=== PATIENT | male | born 1970 | race Caucasian/White ===

== ENCOUNTER 2017-07-29 10:16 | Outpatient (CLI) | payer OTHER | END 2017-07-29 10:29 | disposition home or self-care (01) | LOC: SONOGRAMA 10:16 | DX: E03.8 Other specified hypothyroidism (principal); I10 Essential (primary) hypertension; E55.9 Vitamin D deficiency, unspecified; F41.1 Generalized anxiety disorder; E78.00 Pure hypercholesterolemia, unspecified ==

== ENCOUNTER 2019-05-07 13:39 | Outpatient (CLI) | payer OTHER | END 2019-05-07 13:58 | disposition home or self-care (01) | LOC: SONOGRAMA 13:39 | DX: E03.8 Other specified hypothyroidism (principal) ==

== ENCOUNTER 2020-02-29 09:24 | Outpatient (CLI) | payer OTHER | END 2020-02-29 09:32 | disposition home or self-care (01) | LOC: SONOGRAMA 09:24 | PROVIDERS: ATTEND Internal Medicine Endocrinology, Diabetes & Metabolism | DX: E04.1 Nontoxic single thyroid nodule (principal) ==

== ENCOUNTER 2020-03-31 12:26 | Outpatient (CLI) | payer OTHER | END 2020-03-31 12:28 | disposition home or self-care (01) | LOC: SONOGRAMA 12:26 | PROVIDERS: ATTEND Pathology Anatomic Pathology & Clinical Pathology | DX: E04.2 Nontoxic multinodular goiter (principal) ==

== ENCOUNTER 2020-04-07 09:20 | Outpatient (CLI) | payer OTHER | END 2020-04-07 09:23 | disposition home or self-care (01) | LOC: RX STUDY 09:20 | PROVIDERS: ATTEND Internal Medicine Cardiovascular Disease | DX: Z00.00 Encounter for general adult medical examination without abnormal findings (principal) ==

== ENCOUNTER 2020-04-15 10:52 | Outpatient (CLI) | payer OTHER | END 2020-04-15 10:54 | disposition home or self-care (01) | LOC: NUCLEAR 10:52 | PROVIDERS: ATTEND Internal Medicine Cardiovascular Disease | DX: M85.89 Other specified disorders of bone density and structure, multiple sites (principal) ==

== ENCOUNTER 2021-05-23 07:34 | Outpatient (CLI) | payer OTHER | END 2021-05-23 07:48 | disposition home or self-care (01) | LOC: SONOGRAMA 07:34 | PROVIDERS: ATTEND Specialist | DX: E03.8 Other specified hypothyroidism (principal) ==

== ENCOUNTER 2021-11-14 09:03 | Outpatient (CLI) | payer OTHER | END 2021-11-14 09:15 | disposition home or self-care (01) | LOC: MRI 09:03 | PROVIDERS: ATTEND Physical Medicine & Rehabilitation | DX: M54.31 Sciatica, right side (principal); M54.51 Vertebrogenic low back pain; M51.9 Unspecified thoracic, thoracolumbar and lumbosacral intervertebral disc disorder | CPT/HCPCS: 72148 ==

== ENCOUNTER → 2022-09-08 07:44 | Outpatient (CLI) | payer OTHER | END | disposition home or self-care (01) | LOC: LAB 07:44 | PROVIDERS: ATTEND Specialist | DX: E03.9 Hypothyroidism, unspecified (principal); E55.9 Vitamin D deficiency, unspecified; B00.9 Herpesviral infection, unspecified; F41.1 Generalized anxiety disorder; Z12.11 Encounter for screening for malignant neoplasm of colon; N42.83 Cyst of prostate; R73.01 Impaired fasting glucose; D64.9 Anemia, unspecified; N39.0 Urinary tract infection, site not specified; E78.00 Pure hypercholesterolemia, unspecified; E78.1 Pure hyperglyceridemia; E04.1 Nontoxic single thyroid nodule; I10 Essential (primary) hypertension; E78.2 Mixed hyperlipidemia; D50.0 Iron deficiency anemia secondary to blood loss (chronic); I11.9 Hypertensive heart disease without heart failure ==

== ENCOUNTER 2022-09-28 08:18 | Outpatient (CLI) | payer OTHER | END 2022-09-28 08:24 | disposition home or self-care (01) | LOC: SONOGRAMA 08:18 | PROVIDERS: ATTEND Specialist | DX: E03.9 Hypothyroidism, unspecified (principal); M54.50 Low back pain, unspecified ==

== ENCOUNTER 2022-09-28 08:52 | Outpatient (CLI) | payer OTHER | END 2022-09-28 08:54 | disposition home or self-care (01) | LOC: LAB 08:52 | PROVIDERS: ATTEND Specialist | DX: Z12.11 Encounter for screening for malignant neoplasm of colon (principal) ==

== ENCOUNTER 2022-11-19 07:30 | Outpatient (CLI) | payer OTHER | END 2022-11-19 07:44 | disposition home or self-care (01) | LOC: MRI 07:30 | PROVIDERS: ATTEND Physical Medicine & Rehabilitation Pain Medicine | DX: M51.26 Other intervertebral disc displacement, lumbar region (principal) | CPT/HCPCS: 72148 ==

== ENCOUNTER 2024-08-28 07:12 | Outpatient (CLI) | payer OTHER ==
[2024-08-28 08:16] LABS: HEMATOCRIT 42.1 % (39.0-48.0); HEMOGLOBIN 14.4 g/dL (13-16.00); MEAN CELL VOLUME 82.5 fL (80.0-100.00); MEAN CORPUSCULAR HEMOGLOBIN 28.3 pg (27.00-32.0); MEAN CORPUSCULAR HGB CONC 34.3 g/dl (32.0-36.0); PLATELET COUNT 353 K/uL (150-450); RED BLOOD COUNT 5.11 M/uL (4.00-6.00); RED CELL DISTRIBUTION WIDTH 13.5 % (11.5-14.5)
[2024-08-28 08:32] LABS: URINE BACTERIA 6.1 uL (0.0-1933); URINE WBC 3.6 uL (0.0-23.2)
[2024-08-28 09:01] LABS: URINE BILIRRUBIN NEGATIVE (NEGATIVE); URINE BLOOD NEGATIVE; URINE GLUCOSE NEGATIVE (NEGATIVE); URINE KETONE NEGATIVE (NEGATIVE); URINE LEUKOCYTE NEGATIVE; URINE NITRATE NEGATIVE; URINE PROTEIN NEGATIVE (NEGATIVE); URINE UROBILINOGEN 0.2 E.U./dl
[2024-08-28 09:02] LABS: URINE EPITHELIAL CELLS 0.9 uL (0.0-38.8); URINE RBC 1.6 uL (0.0-20.8)
[2024-08-28 09:03] LABS: URINE APPEARANCE CLEAR; URINE COLOR YELLOW
[2024-08-28 09:15] LABS: ALBUMIN 3.8 gm/dL (3.4-5.0); BILIRUBIN TOTAL 0.47 mg/dL (0.3-1.2); CALCIUM 9.7 mg/dL (8.5-10.1); CHOL HDL RATIO 1.8 (0-5.0); CREATININE SERUM 1.04 mg/dL (0.70-1.30); GFR 74.7; GLOBULINA 3.4 G/DL (2.4-3.5); POTASSIUM 4.36 mEq/L (3.5-5.1); TOTAL PROTEIN 7.2 gm/dL (6.4-8.2)
[2024-08-28 13:58] LABS: FREE TRIODOTIRONINE 2.6 pg/ml (2.18-3.98); PROSTATIC SPECIFIC ANTIGEN 1.31 NG/ML (0.010-4.00); T4 FREE 0.96 NG/ML (0.76-1.46); TSH 1.07 uIU/mL (0.358-3.74)
== END 2024-08-28 07:24 | disposition home or self-care (01) ==
LOC: LAB 07:12
PROVIDERS: ATTEND Specialist
DX: N39.0 Urinary tract infection, site not specified (principal); E03.9 Hypothyroidism, unspecified; E55.9 Vitamin D deficiency, unspecified; B00.9 Herpesviral infection, unspecified; F41.1 Generalized anxiety disorder; Z12.11 Encounter for screening for malignant neoplasm of colon; N42.83 Cyst of prostate; R73.01 Impaired fasting glucose; D64.9 Anemia, unspecified; E78.00 Pure hypercholesterolemia, unspecified; E78.1 Pure hyperglyceridemia

== ENCOUNTER 2024-08-28 07:55 | Outpatient (CLI) | payer OTHER | END 2024-08-28 08:07 | disposition home or self-care (01) | LOC: SONOGRAMA 07:55 | PROVIDERS: ATTEND Specialist | DX: E03.9 Hypothyroidism, unspecified (principal) ==

== ENCOUNTER 2025-03-22 09:22 | Outpatient (CLI) | payer OTHER | END 2025-03-22 09:27 | disposition home or self-care (01) | LOC: SONOGRAMA 09:22 | PROVIDERS: ATTEND Pathology Anatomic Pathology | DX: E21.4 Other specified disorders of parathyroid gland (principal); E04.2 Nontoxic multinodular goiter ==

== ENCOUNTER 2025-05-24 11:30 | Outpatient (CLI) | payer OTHER ==
[2025-05-24 12:56] LABS: CREATININE SERUM 0.94 mg/dL (0.70-1.30); GFR 83.63
== END 2025-05-24 11:41 | disposition home or self-care (01) ==
LOC: LAB 11:30
PROVIDERS: ATTEND Radiology Diagnostic Radiology
DX: R10.30 Lower abdominal pain, unspecified (principal)

== ENCOUNTER 2025-05-31 08:06 | Outpatient (CLI) | payer OTHER | END 2025-05-31 08:12 | disposition home or self-care (01) | LOC: TOM 08:06 | PROVIDERS: ATTEND Urology | DX: K80.20 Calculus of gallbladder without cholecystitis without obstruction (principal) ==